=== PATIENT | female | born 1960 | race Caucasian/White ===

== ENCOUNTER → 2018-06-13 | Outpatient (CLI) | payer OTHER ==
[~2018-06-13] MED LIST: LEVSOD50 PO; LIOT5 PO; Percocet 5-3251 EACH PO; Synthroid125 MCG PO
== END | disposition home or self-care (01) ==
LOC: LAB SHORT 08:14 → PLD 08:14
DX: D22.72 Melanocytic nevi of left lower limb, including hip (principal)
CPT/HCPCS: 88305

== ENCOUNTER 2018-12-08 10:51 | Day surgery (SDC) | payer OTHER ==
[~2018-12-08] VITALS: Ht 172.7 cm; Wt 72.5 kg
[~2018-12-08 10:51] MED LIST changes: +ESTRADIOL1 EAC1 TD; +PROG100 PO
--- NOTE | 2018-12-08 13:16 | NUR ---
12/08/18 1316 Simon An IN STEP DOWN PT C/O OF SRATCHY THROAT. PT VOICE IS RASPY. REPORT FROM [facility] STATES THAT PT HAD EMESIS DURING PROCEDURE. PT VSS. WARM TEA GIVEN, PT STATES THIS IS HELPING HER THROAT.
== END 2018-12-08 13:05 | disposition home or self-care (01) ==
LOC: ORSCSDS 10:51
PROVIDERS: Internal Medicine Gastroenterology
PROC: 0DBK8ZX Excision of Ascending Colon, Via Natural or Artificial Opening Endoscopic, Diagnostic (ICD-10-PCS; principal; 2018-12-08 12:00)
PROC: 0DBN8ZX Excision of Sigmoid Colon, Via Natural or Artificial Opening Endoscopic, Diagnostic (ICD-10-PCS; principal; 2018-12-08 12:00)
DX: R19.7 Diarrhea, unspecified (principal); R10.84 Generalized abdominal pain; D12.2 Benign neoplasm of ascending colon; K63.5 Polyp of colon; K57.30 Diverticulosis of large intestine without perforation or abscess without bleeding; E03.9 Hypothyroidism, unspecified; Z87.891 Personal history of nicotine dependence; Z79.899 Other long term (current) drug therapy
CPT/HCPCS: 88305; J2405; J2704; J7120

== ENCOUNTER 2019-05-12 11:02 | Day surgery (SDC) | payer OTHER ==
[~2019-05-12 11:02] MED LIST changes: +ASCO500 PO; -ESTRADIOL1 EAC1 TD; +ESTRADIOL1 EAC1 TOP; +MULTI-DAY PLUS1 EAC1 PO; +SEA OMEGA PO; +VITAMIN D3 PO
--- NOTE | 2019-05-12 12:26 | NUR ---
Ambulatory in Day Surgery Surgical site prepped with 2% Chlorhexidine cloth wipe. History, Chart, Medications and Allergies reviewed before start of procedure.Lungs clear T/O to Auscultation. Patient confirms NPO status and agrees with scheduled surgery. Patient reports completing Chlorhexadine shower X2 prior to admission to hospital. CHAPIN LANGE PLACED UNDER BED.
--- NOTE | 2019-05-12 19:37 | NUR ---
1836 Patient up to Ambulate independently. Gait steady. Discharge instructions reviewed with patient. Patient verbalizes understanding. Copy given to patient to take home. Patient States Post-Procedure ride home has been arranged. Discharged via wheelchair to private car for ride nola
== END 2019-05-12 23:23 | disposition home or self-care (01) ==
LOC: ORSCMMR 11:02 → ORD 13:00 → ORSCMMR 13:00
PROVIDERS: Surgery
PROC: 8E0W3CZ Robotic Assisted Procedure of Trunk Region, Percutaneous Approach (ICD-10-PCS; principal; 2019-05-12 13:00)
PROC: 0YU74JZ Supplement Right Femoral Region with Synthetic Substitute, Percutaneous Endoscopic Approach (ICD-10-PCS; principal; 2019-05-12 13:00)
DX: K41.30 Unilateral femoral hernia, with obstruction, without gangrene, not specified as recurrent (principal); E03.9 Hypothyroidism, unspecified; Z87.891 Personal history of nicotine dependence; Z79.899 Other long term (current) drug therapy
CPT/HCPCS: 49659; S2900; A9270-GY; C1781; J0690; J1100; J1885; J2250; J2370; J2405; J2704; J2710; J2765; J3010; J7120

== ENCOUNTER → 2021-11-25 | Outpatient (CLI) | payer OTHER | END | disposition home or self-care (01) | LOC: PLD 11:09 → LAB SHORT 11:09 | DX: L81.9 Disorder of pigmentation, unspecified (principal) | CPT/HCPCS: 88305 ==

== ENCOUNTER → 2022-12-30 | Outpatient (CLI) | payer OTHER | END | disposition home or self-care (01) | LOC: LAB SHORT 10:49 → LAB 10:49 | DX: R13.19 Other dysphagia (principal) | CPT/HCPCS: 86677 ==

== ENCOUNTER 2023-03-16 09:44 | Day surgery (SDC) | payer MEDICARE, OTHER ==
[~2023-03-16] VITALS: Ht 170.2 cm; Wt 73.2 kg
[2023-03-16] MEDS ORDERED: LEVOTHYROXINE112 M18 PO (10:27)
[2023-03-16] MEDS ORDERED: LEVSOD112 PO (10:28)
[2023-03-16 13:13] VITALS: BP 117/65
--- NOTE | 2023-03-16 13:15 | NUR ---
03/16/23 1315 Hortensia Montejo IV DC'D CATH INTACT. PT TOLERATED WELL. PRESSURE DRESSING IN PLACE
== END 2023-03-16 13:15 | disposition home or self-care (01) ==
LOC: ORSCSDS 09:44
PROVIDERS: Internal Medicine Gastroenterology
PROC: 0DB58ZX Excision of Esophagus, Via Natural or Artificial Opening Endoscopic, Diagnostic (ICD-10-PCS; 2023-03-16)
PROC: 0D757ZZ Dilation of Esophagus, Via Natural or Artificial Opening (ICD-10-PCS; principal; 2023-03-16 11:00)
DX: R13.10 Dysphagia, unspecified (principal); R10.9 Unspecified abdominal pain; R93.5 Abnormal findings on diagnostic imaging of other abdominal regions, including retroperitoneum; E03.9 Hypothyroidism, unspecified; K22.2 Esophageal obstruction; K44.9 Diaphragmatic hernia without obstruction or gangrene; Z79.899 Other long term (current) drug therapy
CPT/HCPCS: 88305; J2704; J7120

== ENCOUNTER → 2023-04-15 | Outpatient (CLI) | payer MEDICARE, OTHER ==
[~2023-04-15] MED LIST changes: +LEVOTHYROXINE112 M18 PO; +LEVSOD112 PO
[2023-04-15 19:10] LABS: Free Thyroxine 1.24 ng/dL (0.70-1.60)
[2023-04-15 19:12] LABS: Thyroid Stimulating Hormone 0.179 uIU/mL (0.360-4.800); Triiodothyronine, Free 2.17 pg/mL (2.18-3.98)
== END | disposition home or self-care (01) ==
LOC: LAB SHORT 14:20 → LAB 14:20 → LAB FUT 01-07 13:30
PROVIDERS: Internal Medicine
DX: E03.9 Hypothyroidism, unspecified (principal); R13.19 Other dysphagia
CPT/HCPCS: 36415; 84439; 84443; 84481

== ENCOUNTER 2023-09-29 09:06 | Day surgery (SDC) | payer MEDICARE, OTHER ==
[~2023-09-29] VITALS: Ht 170.2 cm; Wt 73.9 kg
[~2023-09-29 09:06] MED LIST changes: +ESTRADIOL (ONC1 EA30 TD; -LEVSOD112 PO; +Lactated Ringer's 1,000 ML IV ONE; +SYNTHROID112 M12 PO; +propofoL 50 ML IV ONE
[2023-09-29] MEDS ORDERED: LEVSOD100 (09:33)
[2023-09-29] MEDS ORDERED: Lactated Ringer's 1,000 ML IV ONE (10:01)
[2023-09-29] MEDS ORDERED: Ondansetron HCl 2 MG / ML 2ML Vial ONE ×3 (10:32→11:23)
[2023-09-29] MEDS ORDERED: propofoL 50 ML IV ONE (11:23)
[2023-09-29] MEDS ORDERED: ePHEDrine Sulfate 50 MG/ML 1ML Injection ONE (11:23)
[2023-09-29 11:38] VITALS: BP 112/82
--- NOTE | 2023-09-29 11:51 | NUR ---
09/29/23 1151 Rosina Morris HIGH FIBER DIET/DIVERTICULOSIS PAMPHLETS GIVEN TO PT.
== END 2023-09-29 11:51 | disposition home or self-care (01) ==
LOC: ORSCSDS 09:06
PROVIDERS: Internal Medicine Gastroenterology
PROC: 0DJD8ZZ Inspection of Lower Intestinal Tract, Via Natural or Artificial Opening Endoscopic (ICD-10-PCS; principal; 2023-09-29 10:15)
DX: R10.30 Lower abdominal pain, unspecified (principal); Z86.010 Personal history of colon polyps; R94.8 Abnormal results of function studies of other organs and systems; K57.30 Diverticulosis of large intestine without perforation or abscess without bleeding; K64.8 Other hemorrhoids; E03.9 Hypothyroidism, unspecified; Z79.899 Other long term (current) drug therapy
CPT/HCPCS: J2405; J2704; J7120

== ENCOUNTER → 2023-12-07 | Outpatient (CLI) | payer MEDICARE, OTHER | LOC: LAB SHORT 10:13 → LAB 10:13 | DX: D48.5 Neoplasm of uncertain behavior of skin (principal) ==

== ENCOUNTER → 2024-06-29 | Outpatient (CLI) | payer MEDICARE, OTHER ==
[~2024-06-29] MED LIST changes: +LEVSOD100; -Lactated Ringer's 1,000 ML IV ONE; -propofoL 50 ML IV ONE
[2024-06-29 10:53] LABS: Source, Urine Clean Catch
[2024-06-29 13:46] LABS: Appearance, Urine Hazy (Clear); Bilirubin, Urine Neg (Neg); Blood, Urine Neg (Neg); Color, Urine Yellow (P-Yellow); Glucose Qualitative, Urine Neg (Neg); Ketones, Urine Neg (Neg); Leukocyte Esterase, Urine 1+ (Neg); Nitrite, Urine Neg (Neg); Protein, Urine Neg (Neg); Urobilinogen, Urine NORM (Normal)
[2024-06-29 14:02] LABS: Bacteria Many /hpf; Red Blood Cells, Urine 0-2 /hpf (0-2); Squamous Epithelial Cells Few /hpf (Few)
== END ==
LOC: LAB SHORT 10:50 → LAB 10:50
PROVIDERS: Internal Medicine
DX: R30.0 Dysuria (principal)
CPT/HCPCS: 81001; 87077; 87086; 87186

== ENCOUNTER → 2024-07-10 | Outpatient (CLI) | payer MEDICARE, OTHER ==
[2024-07-10 18:17] LABS: Source, Urine Clean Catch
[2024-07-10 18:20] LABS: Appearance, Urine Clear (Clear); Bilirubin, Urine Neg (Neg); Blood, Urine Neg (Neg); Color, Urine Yellow (P-Yellow); Glucose Qualitative, Urine Neg (Neg); Ketones, Urine Neg (Neg); Leukocyte Esterase, Urine Neg (Neg); Nitrite, Urine Neg (Neg); Protein, Urine Neg (Neg); Specific Gravity, Urine 1.015 (1.003-1.022); Urobilinogen, Urine NORM (Normal)
== END | disposition home or self-care (01) ==
LOC: LAB SHORT 16:24 → LAB 16:24
PROVIDERS: Internal Medicine
DX: R30.0 Dysuria (principal)
CPT/HCPCS: 81003